=== PATIENT | male | born 1990 | race African-American/Black ===

== ENCOUNTER 2016-12-10 05:56 | Emergency (ER) | payer BC ==
[2016-12-10 06:03] VITALS: BP 142/85; PULSE 63; RESP 18; TEMP 98.3
[2016-12-10] MEDS ORDERED: CLINDAMYCIN 150 MG CAP PO STA (06:09)
[2016-12-10] MEDS ORDERED: IBUPROFEN 600 MG TAB PO STA (06:11)
--- NOTE | 2016-12-10 06:14 | ED ---
General Adult HPI - General Chief complaint: Dental/Oral Stated complaint: dental pain Time Seen by Provider: 12/10/16 06:00 Source: patient, RN notes reviewed Mode of arrival: ambulatory Limitations: no limitations - History of Present Illness Initial comments: This is a 26-year-old male who presents emergency Department with a three-day history of a toothache bilateral lower molars. Patient states there's been no drainage but on the left side the areas become slightly swollen and much more tender. Patient states she's had this in the past. Patient states she's been unable to get to his tetanus but he will see his dentist this week. Patient denies any fever chills patient denies any drainage. Patient states one of his teeth recently cracked. Patient denies any other symptoms at this time - Related Data Previous Rx's Medication Instructions Recorded Clindamycin HCl 300 mg PO Q6H 10 Days 12/10/16 Allergies Allergy/AdvReac Type Severity Reaction Status Date / Time amoxicillin [Amoxicillin] Allergy Unknown Verified 08/02/15 08:54 Review of Systems ROS Statement: Those systems with pertinent positive or pertinent negative responses have been documented in the HPI. ROS Other: All systems not noted in ROS Statement are negative. Past Medical History Past Medical History: No Reported History History of Any Multi-Drug Resistant Organisms: None Reported Past Surgical History: No Surgical Hx Reported Past Psychological History: No Psychological Hx Reported Smoking Status: Never smoker Past Alcohol Use History: Occasional Past Drug Use History: None Reported General Exam - General Exam Comments Initial Comments: GENERAL Patient is well-developed and well-nourished. Patient is in mild distress. EYES Patient's pupils are equal and round. Extraocular motion is intact Mouth Patient has some swelling about the left lower molar and some tooth tenderness on the right premolar on the bottom SKIN Unremarkable NEURO The patient is alert and oriented 3 PYSCH Patient has normal interpersonal interactions. Limitations: no limitations Course Vital Signs 12/10/16 06:00 Temperature 98.3 F Pulse Rate 63 Respiratory 18 Rate Blood Pressure 142/85 O2 Sat by Pulse 99 Oximetry Disposition Clinical Impression: Dental abscess Disposition: HOME SELF-CARE Condition: Good Instructions: Dental Abscess (ED) Additional Instructions: Patient should take Motrin and clindamycin as prescribed. Patient should follow -up with a dentist as soon as possible Prescriptions: Clindamycin HCl 300 mg PO Q6H 10 Days Referrals: None,Stated [Primary Care Provider] - 1-2 days Time of Disposition: 06:13
== END 2016-12-10 06:21 | disposition home or self-care (01) ==
LOC: EC 05:56
DX: K04.7 Periapical abscess without sinus (principal); Z88.0 Allergy status to penicillin
CPT/HCPCS: 99282

== ENCOUNTER 2017-01-09 10:31 | Emergency (ER) | payer BC ==
[2017-01-09 10:53] VITALS: BP 115/81; PULSE 98; RESP 18; TEMP 98.2
[2017-01-09] MEDS ORDERED: diphenhydrAMINE 50 MG/ML 1 ML VIAL IM STA (11:26)
[2017-01-09] MEDS ORDERED: predniSONE 50 MG TAB PO STA (11:26)
--- NOTE | 2017-01-09 11:42 | ED ---
General Adult HPI - General Chief complaint: Skin/Abscess/Foreign Body Stated complaint: sore throat/rash Time Seen by Provider: 01/09/17 10:55 Source: patient, RN notes reviewed Mode of arrival: ambulatory Limitations: no limitations - History of Present Illness Initial comments: This is a 26-year-old male who comes in complaining of hives all over his body. Patient states it started a day ago. Patient states he has had no difficulty breathing [place] of breath per patient states she's never had an episode like this in the past. Patient states she on his back chest abdomen and extremities. Patient states today they began on his face as well. Patient states they're all very itchy. Patient has not taken anything for pain. Patient denies anyone else with similar symptoms. Patient states he has not eaten anything different has had no new soaps detergents or perfumes. Patient denies anything new at work as well. - Related Data Previous Rx's Medication Instructions Recorded predniSONE 40 mg PO DAILY #8 tab 01/09/17 Allergies Allergy/AdvReac Type Severity Reaction Status Date / Time amoxicillin [Amoxicillin] Allergy Unknown Verified 01/09/17 11:19 Review of Systems ROS Statement: Those systems with pertinent positive or pertinent negative responses have been documented in the HPI. ROS Other: All systems not noted in ROS Statement are negative. Past Medical History Past Medical History: No Reported History History of Any Multi-Drug Resistant Organisms: None Reported Past Surgical History: No Surgical Hx Reported Past Psychological History: No Psychological Hx Reported Smoking Status: Never smoker Past Alcohol Use History: Occasional Past Drug Use History: None Reported General Exam - General Exam Comments Initial Comments: GENERAL: Patient is well-developed and well-nourished. Patient is nontoxic and well- hydrated and is in mild distress. ENT: Neck is soft and supple. No significant lymphadenopathy is noted. Oropharynx is clear. Moist mucous membranes. Neck has full range of motion without eliciting any pain. EYES: The sclera were anicteric and conjunctiva were pink and moist. Extraocular movements were intact and pupils were equal round and reactive to light. Eyelids were unremarkable. PULMONARY: Unlabored respirations. Good breath sounds bilaterally. No audible rales rhonchi or wheezing was noted. CARDIOVASCULAR: There is a regular rate and rhythm without any murmurs gallops or rubs. ABDOMEN: Soft and nontender with normal bowel sounds. No palpable organomegaly was noted. There is no palpable pulsatile mass. SKIN: Patient has hives on his face chest back abdomen and all 4 extremities. NEUROLOGIC: Patient is alert and oriented x3. Cranial nerves II through XII are grossly intact. Motor and sensory are also intact. Normal speech, volume and content. Symmetrical smile. MUSCULOSKELETAL: Normal extremities with adequate strength and full range of motion. No lower extremity swelling or edema. No calf tenderness. LYMPHATICS: No significant lymphadenopathy is noted PSYCHIATRIC: Normal psychiatric evaluation. Limitations: no limitations Course Vital Signs 01/09/17 10:50 Temperature 98.2 F Pulse Rate 98 Respiratory 18 Rate Blood Pressure 115/81 O2 Sat by Pulse 99 Oximetry Disposition Clinical Impression: Allergic reaction Disposition: HOME SELF-CARE Condition: Good Instructions: Urticaria (ED) Prescriptions: predniSONE 40 mg PO DAILY #8 tab Referrals: Harriet Bauer DO [Primary Care Provider] - 1-2 days
== END 2017-01-09 11:45 | disposition home or self-care (01) ==
LOC: EC 10:31
DX: L50.0 Allergic urticaria (principal); Z88.0 Allergy status to penicillin
CPT/HCPCS: 96372 ×2; 99282 ×2; J1200; J7512

== ENCOUNTER 2017-12-05 02:58 | Emergency (ER) | payer BC, OTHER ==
[2017-12-05 03:06] VITALS: BP 131/94; PULSE 70; RESP 18; TEMP 97.7
--- NOTE | 2017-12-05 03:17 | ED ---
Wound/Laceration HPI - General Chief Complaint: Wound/Laceration Stated Complaint: IHS-arm lac Time Seen by Provider: 12/05/17 03:13 Source: patient, RN notes reviewed Mode of arrival: ambulatory Limitations: no limitations - History of Present Illness Initial Comments: 27-year-old male presents emergency Department with chief complaint of right arm laceration. Patient states that he uses a of banding done at work states that the band chemo cut his arm. Patient states he noticed small wound. Patient is up-to-date on his tetanus. Denies any paresthesias denies any weakness so active bleeding. - Related Data Home Medications Medication Instructions Recorded Confirmed No Known Home Medications [No 12/05/17 12/05/17 Known Home Medications] Allergies Allergy/AdvReac Type Severity Reaction Status Date / Time amoxicillin [Amoxicillin] Allergy Unknown Verified 12/05/17 03:06 Review of Systems ROS Statement: Those systems with pertinent positive or pertinent negative responses have been documented in the HPI. ROS Other: All systems not noted in ROS Statement are negative. Past Medical History Past Medical History: No Reported History History of Any Multi-Drug Resistant Organisms: None Reported Past Surgical History: No Surgical Hx Reported Past Psychological History: No Psychological Hx Reported Smoking Status: Never smoker Past Alcohol Use History: Occasional Past Drug Use History: None Reported General Exam Limitations: no limitations General appearance: alert, in no apparent distress Head exam: Present: atraumatic, normocephalic, normal inspection Respiratory exam: Present: normal lung sounds bilaterally. Absent: respiratory distress, wheezes, rales, rhonchi, stridor Cardiovascular Exam: Present: regular rate, normal rhythm, normal heart sounds. Absent: systolic murmur, diastolic murmur, rubs, gallop, clicks Extremities exam: Present: other (right forearm there is a 0.5 cm superficial laceration there is no active bleeding patient has full range of motion of right hand, right digital right wrist neurovascular intact) Course Vital Signs 12/05/17 03:03 Temperature 97.7 F Pulse Rate 70 Respiratory 18 Rate Blood Pressure 131/94 O2 Sat by Pulse 99 Oximetry Medical Decision Making - Medical Decision Making 27-year-old male presented for right forearm laceration. It was cleaned bacitracin applied tetanus is up-to-date. Patient does not need any closure. Return parameters were discussed wound care was discussed Disposition Clinical Impression: Laceration of right forearm Disposition: HOME SELF-CARE Condition: Stable Instructions: Laceration (ED) Additional Instructions: Please return to the Emergency Department if symptoms worsen or any other concerns. Referrals: None,Stated [Primary Care Provider] - 1-2 days Time of Disposition: 03:18
== END 2017-12-05 03:35 | disposition home or self-care (01) ==
LOC: EC 02:58
DX: S51.811A Laceration without foreign body of right forearm, initial encounter (principal); W26.8XXA Contact with other sharp object(s), not elsewhere classified, initial encounter; Y92.69 Other specified industrial and construction area as the place of occurrence of the external cause; Y99.0 Civilian activity done for income or pay
CPT/HCPCS: 99282

== ENCOUNTER 2021-10-24 12:29 | Emergency (ER) | payer OTHER ==
--- NOTE | 2021-10-24 13:35 | ED ---
URI HPI - General Stated Complaint: covid symptoms Time Seen by Provider: 10/24/21 13:33 Source: patient, RN notes reviewed Mode of arrival: ambulatory Limitations: no limitations - History of Present Illness Initial Comments: 31-year-old male present emergency department with chief complaint of COVID-19 symptoms. Patient states symptoms started approximately 2 days ago. Patient's complaint of fever bodyaches congestion. Patient does complain sore throat and back aches. Patient states that her his whole family is sick with similar symptoms. Patient noted have fevers and chills. No GI symptoms including nausea vomiting diarrhea constipation. - Related Data Home Medications Medication Instructions Recorded Confirmed No Known Home Medications 12/05/17 12/05/17 Allergies Allergy/AdvReac Type Severity Reaction Status Date / Time amoxicillin [Amoxicillin] Allergy Unknown Verified 10/24/21 13:33 Review of Systems ROS Statement: Those systems with pertinent positive or pertinent negative responses have been documented in the HPI. ROS Other: All systems not noted in ROS Statement are negative. Past Medical History Past Medical History: No Reported History History of Any Multi-Drug Resistant Organisms: None Reported Past Surgical History: No Surgical Hx Reported Past Psychological History: No Psychological Hx Reported Past Alcohol Use History: Occasional Past Drug Use History: None Reported General Exam General appearance: alert, in no apparent distress Head exam: Present: atraumatic, normocephalic, normal inspection Eye exam: Present: normal appearance, PERRL, EOMI. Absent: scleral icterus, conjunctival injection, periorbital swelling ENT exam: Present: normal exam, normal oropharynx, mucous membranes moist Neck exam: Present: normal inspection, full ROM. Absent: tenderness, meningismus, lymphadenopathy Respiratory exam: Present: normal lung sounds bilaterally. Absent: respiratory distress, wheezes, rales, rhonchi, stridor Cardiovascular Exam: Present: regular rate, normal rhythm, normal heart sounds. Absent: systolic murmur, diastolic murmur, rubs, gallop, clicks Course Vital Signs 10/24/21 13:33 Temperature 99.6 F Pulse Rate 83 Respiratory 20 Rate Blood Pressure 126/83 O2 Sat by Pulse 99 Oximetry Medical Decision Making - Medical Decision Making Positive covid 19. Patient discharged in stable condition - Lab Data Lab Results 10/24/21 Range/Units 13:35 Coronavirus (PCR) Detected A (Not Detectd) Disposition Clinical Impression: COVID-19 Disposition: HOME SELF-CARE Condition: Stable Instructions (If sedation given, give patient instructions): Coronavirus Disease 2019 (COVID-19) Additional Instructions: Please return to the Emergency Department if symptoms worsen or any other concerns. Is patient prescribed a controlled substance at d/c from ED?: No Referrals: None,Stated [Primary Care Provider] - 1-2 days Time of Disposition: 15:05
[2021-10-24 15:40] VITALS: BP 121/83; PULSE 75; RESP 16; TEMP 98.7
== END 2021-10-24 15:30 | disposition home or self-care (01) ==
LOC: EC 12:29
DX: U07.1 COVID-19 (principal)
CPT/HCPCS: 87635; 99283